=== PATIENT | male | born 1955 | race Caucasian/White ===

== ENCOUNTER 2019-02-27 11:38 | Inpatient (IN) | payer MEDICARE ==
[~2019-02-27] VITALS: Ht 177.8 cm; Wt 109.0 kg
[~2019-02-27 11:38] MED LIST: AMLO10TA PO; ASPI-611 PO; BUDE3CAP8 PO; CYAN50003 PO; FERR324T7 PO; FISH12002 PO; HYDR-4353 PO; KEN0.1O TP; LISI-600 PO; MAGN400T6 PO; MESA1.2T PO; METO50TA7 PO; MULT-1085 PO; POTA20TA19 PO; PRAV10TA39 PO; TICA90TA2 PO; VANC250C12 PO
[2019-02-27] MEDS ORDERED: piperacillin/tazo 3.375gm/50ml 50 ML IV ONE (12:50)
[2019-02-27] MEDS ORDERED: vancomycin/NS 1 GM ADD-VANTAGE 250 ML IV ONE (12:50)
[2019-02-27] MEDS ORDERED: normal saline 1000ML IV soln IVB ONE (12:50)
[2019-02-27] MEDS ORDERED: LIDOcaine 1% w/epiNEPHrine 1:200,000 30ml vial IM ONE (13:05)
[2019-02-27 13:35] LABS: BASOPHILS # (AUTO) 0.1 X10'3 (0-0.2); BASOPHILS % (AUTO) 0.8 % (0-1); EOSINOPHILS # (AUTO) 0.3 X10'3 (0-0.9); EOSINOPHILS % (AUTO) 3.3 % (0-6); HEMATOCRIT 45.2 % (42.0-52.0); HEMOGLOBIN 15.2 g/dl (14.0-17.9); LYMPHOCYTES # (AUTO) 1.2 X10'3 (1.1-4.8); LYMPHOCYTES % (AUTO) 15.3 % (21-51); MEAN CORPUSCULAR HEMOGLOBIN 27.6 PG (27.0-31.0); MEAN CORPUSCULAR HGB CONC 33.6 g/dL (33.0-36.5); MEAN CORPUSCULAR VOLUME 82.2 FL (78-98); MEAN PLATELET VOLUME 7.8 FL (7.4-10.4); MONOCYTES % (AUTO) 12.2 % (2-12); NEUTROPHILS # (AUTO) 5.5 X10'3 (1.8-7.7); NEUTROPHILS % (AUTO) 68.4 % (42-75); PLATELET COUNT 298 X10'3 (140-440); RED BLOOD COUNT 5.51 X10'6 (4.70-6.10); RED CELL DISTRIBUTION WIDTH 18.8 % (11.5-14.5); WHITE BLOOD COUNT 8.1 X10'3 (4.5-11.0)
[2019-02-27 13:45] LABS: PARTIAL THROMBOPLASTIN TIME 27 SECONDS (22-32)
[2019-02-27 13:46] LABS: ALANINE AMINOTRANSFERASE 37 U/L (12-78); ALBUMIN 3.3 G/DL (3.4-5.0); ALBUMIN/GLOBULIN RATIO 0.8 (1.1-1.5); ALKALINE PHOSPHATASE 95 IU/L (46-116); ANION GAP 8 (8-16); ASPARTATE AMINO TRANSFERASE 30 U/L (10-37); BILIRUBIN,TOTAL 0.2 MG/DL (0.1-1.0); BLOOD UREA NITROGEN 8 MG/DL (7-18); BUN/CREATININE RATIO 8.5 (5.4-32.0); CHLORIDE 103 MMOL/L (99-107); CREATININE 0.94 MG/DL (0.60-1.10); GLUCOSE 102 MG/DL (70-104); MAGNESIUM 1.9 MG/DL (1.5-2.4); SODIUM 140 MMOL/L (135-145); TOTAL CARBON DIOXIDE 28.6 MMOL/L (24-32); TOTAL PROTEIN 7.5 G/DL (6.4-8.2); eGFR 81 ML/MIN
[2019-02-27 13:48] LABS: POTASSIUM 3.5 MMOL/L (3.5-5.1)
[2019-02-27] MEDS ORDERED: HYDR-4353 PO (13:55)
[2019-02-27 13:58] LABS: PLATELET ESTIMATE NORMAL
[2019-02-27 13:59] LABS: ANISOCYTOSIS 2+
[2019-02-27] MEDS ORDERED: AMIO200T40 PO (14:00)
[2019-02-27] MEDS ORDERED: CLOP75TA15 PO (14:00)
[2019-02-27] MEDS ORDERED: HYDROmorphone 1 mg/ml syringe IV ONE (14:25)
[2019-02-27] MEDS ORDERED: ondansetron/PF 4mg/2ml inj IV ONE (14:25)
[2019-02-27 14:40] LABS: CLARITY,URINE CLEAR (Clear); COLOR,URINE YELLOW (Yellow); GLUCOSE, URINE NEGATIVE (Neg); KETONES,URINE NEGATIVE (Neg); LEUKOCYTE ESTERASE ,URINE NEGATIVE (Neg); NITRITES, URINE NEGATIVE (Neg); OCCULT BLOOD,URINE NEGATIVE (Neg); PROTEIN,URINE NEGATIVE (Neg); UROBILINOGEN,URINE 0.2 E.U/dL (0.2-1.0)
[2019-02-27 14:41] LABS: UA COLLECTION TYPE CLN CATCH MIDSTREAM
[2019-02-27] MEDS ORDERED: USTE45DI (16:24)
[2019-02-27] MEDS ORDERED: mag hydrox/Alum hydrox/simeth 30ml oral suspension PO PRN (17:40)
[2019-02-27] MEDS ORDERED: acetaminophen 325mg tablet PO PRN ×2 (17:40)
[2019-02-27] MEDS ORDERED: ondansetron/PF 4mg/2ml inj IV PRN (17:40)
[2019-02-27] MEDS ORDERED: magnesium 2GM in 50ml NS 50 ML IV PRN (17:40)
[2019-02-27] MEDS ORDERED: magnesium hydroxide 30ml (MOM) UD suspension PO PRN (17:40)
[2019-02-27] MEDS: K and/or MAG REPLACEMENT MC SCH (17:40)
[2019-02-27] MEDS ORDERED: potassium Cl 40MEQ/NS 500ml 500 ML IV PRN ×2 (17:40)
[2019-02-27] MEDS ORDERED: diphenhydrAMINE 25mg capsule PO PRN (17:40)
[2019-02-27] MEDS ORDERED: morphine 2 MG/ML inj. syringe IV PRN ×2 (17:40)
[2019-02-27] MEDS ORDERED: magnesium 4gm in 100ml NS 100 ML IV PRN (17:40)
[2019-02-27] MEDS ORDERED: HYDROcodone/acetaminophen 5mg/325mg tablet PO PRN (17:40)
[2019-02-27] MEDS ORDERED: potassium Cl 20 mEq SR tablet PO PRN (17:40)
[2019-02-27] MEDS ORDERED: magnesium Cl slow-release 64mg tablet PO PRN (17:40)
[2019-02-27] MEDS: normal saline 1000ml 1,000 ML IV SCH (19:57)
[2019-02-27] MEDS: lisinopril 20mg tablet PO SCH (19:58)
[2019-02-27] MEDS: heparin, porcine 5000 units/ml vial SQ SCH (19:59)
[2019-02-27] MEDS: metoprolol succinate 25mg (24-HOUR) SR. Tablet PO SCH (19:59)
[2019-02-27] MEDS ORDERED: METOPROLOL SUCCINATE PO SCH (20:00)
--- NOTE | 2019-02-27 22:38 | NUR ---
PT REPORTS MINIMAL RELIEF FROM MORPHINE IV 2 MG GIVEN 1 HR AGO. HE REPROTS THE DILAUDID GIVEN EARLIER BY ER WORKED RIGHT AWAY. DR. CACERES UPDATED AND DILAUDID 1 MG Q3 HR PRN FOR SEVERE PAIN NOW ORDERED IN ADDITION TO THE PRN MORPHINE AND PRN NORCO.
[2019-02-27] MEDS: HYDROmorphone 1 mg/ml syringe IV PRN (22:52)
--- NOTE | 2019-02-27 23:58 | NUR ---
PT GIVEN DILAUDID FOR 7 OUT OF 10 PAIN TO HIS LEFT FACE. HE REPROTED RELIEF SHORTLY AFTER ADMINISTRATION. VANCOMYCIN INFUSING, ZOSYN DUE AT [place]. PT AWAITING IPA.
[2019-02-28] MEDS: piperacillin/tazo 3.375gm/50ml 50 ML IV SCH ×3 (00:43→16:22)
[2019-02-28] MEDS: HYDROcodone/acetaminophen 10/325mg tab PO PRN ×2 (00:45→07:38)
[2019-02-28 01:15] VITALS: BP 150/81
--- NOTE | 2019-02-28 01:15 | NUR ---
PATIENT ADMITTED TO ROOM 345A FROM ER FOR FACIAL CELLULITIS. PLACED COMFORTABLE IN BED. VITAL SIGNS TAKEN AND RECORDED.
[2019-02-28] MEDS: HYDROmorphone 1 mg/ml syringe IV PRN ×5 (03:05→22:54)
[2019-02-28] MEDS: normal saline 1000ml 1,000 ML IV SCH ×2 (03:40→10:02)
[2019-02-28 04:53] LABS: BASOPHILS # (AUTO) 0.1 X10'3 (0-0.2); BASOPHILS % (AUTO) 1.1 % (0-1); EOSINOPHILS # (AUTO) 0.3 X10'3 (0-0.9); EOSINOPHILS % (AUTO) 5.2 % (0-6); HEMATOCRIT 41.4 % (42.0-52.0); HEMOGLOBIN 13.8 g/dl (14.0-17.9); LYMPHOCYTES # (AUTO) 1.2 X10'3 (1.1-4.8); MEAN CORPUSCULAR HEMOGLOBIN 27.2 PG (27.0-31.0); MEAN CORPUSCULAR HGB CONC 33.3 g/dL (33.0-36.5); MEAN CORPUSCULAR VOLUME 81.9 FL (78-98); MEAN PLATELET VOLUME 7.7 FL (7.4-10.4); MONOCYTES % (AUTO) 15.1 % (2-12); NEUTROPHILS # (AUTO) 4.1 X10'3 (1.8-7.7); NEUTROPHILS % (AUTO) 60.6 % (42-75); PLATELET COUNT 271 X10'3 (140-440); RED BLOOD COUNT 5.06 X10'6 (4.70-6.10); RED CELL DISTRIBUTION WIDTH 18.9 % (11.5-14.5); WHITE BLOOD COUNT 6.7 X10'3 (4.5-11.0)
[2019-02-28 05:19] LABS: ALANINE AMINOTRANSFERASE 29 U/L (12-78); ALBUMIN 2.8 G/DL (3.4-5.0); ALBUMIN/GLOBULIN RATIO 0.8 (1.1-1.5); ALKALINE PHOSPHATASE 80 IU/L (46-116); ANION GAP 6 (8-16); ASPARTATE AMINO TRANSFERASE 18 U/L (10-37); BILIRUBIN,TOTAL 0.2 MG/DL (0.1-1.0); BLOOD UREA NITROGEN 5 MG/DL (7-18); CALCIUM 8.1 MG/DL (8.5-10.1); CHLORIDE 106 MMOL/L (99-107); CREATININE 0.83 MG/DL (0.60-1.10); GLUCOSE 98 MG/DL (70-104); MAGNESIUM 1.6 MG/DL (1.5-2.4); PHOSPHORUS 3.3 MG/DL (2.3-4.5); POTASSIUM 3.2 MMOL/L (3.5-5.1); SODIUM 140 MMOL/L (135-145); TOTAL CARBON DIOXIDE 28.3 MMOL/L (24-32); TOTAL PROTEIN 6.2 G/DL (6.4-8.2); eGFR > 90 ML/MIN
[2019-02-28 06:25] LABS: GIANT PLATELET FEW; PLATELET ESTIMATE NORMAL
[2019-02-28 06:26] LABS: ANISOCYTOSIS 2+
--- NOTE | 2019-02-28 06:46 | NUR ---
Patient in room [facility]. I have received report from Esteban ROBERSON and had the opportunity to ask questions and assume patient care.
[2019-02-28 07:04] VITALS: BP 142/75
[2019-02-28] MEDS: K and/or MAG REPLACEMENT MC SCH (07:23)
[2019-02-28] MEDS: multivitamins, therapeutics tablet PO SCH (07:36)
[2019-02-28] MEDS: clopidogrel 75mg tablet PO SCH (07:36)
[2019-02-28] MEDS: atorvastatin 10mg tablet PO SCH (07:36)
[2019-02-28] MEDS: potassium Cl 20 mEq SR tablet PO PRN ×3 (07:37→17:30)
[2019-02-28] MEDS: amLODIPine 5mg tablet PO SCH (07:37)
[2019-02-28] MEDS: amiodarone 200mg tablet PO SCH (07:37)
[2019-02-28] MEDS: heparin, porcine 5000 units/ml vial SQ SCH ×2 (07:39→19:51)
[2019-02-28] MEDS: lisinopril 20mg tablet PO SCH ×2 (07:41→19:48)
[2019-02-28] MEDS: metoprolol succinate 25mg (24-HOUR) SR. Tablet PO SCH ×2 (07:41→19:49)
[2019-02-28] MEDS ORDERED: non-formulary drug (Multivitamin (Multi Vitamin Daily) 1 EACH) PO SCH (08:00)
[2019-02-28] MEDS ORDERED: non-formulary drug (Amlodipine Besylate 1 TABLET) PO SCH (08:00)
[2019-02-28] MEDS ORDERED: non-formulary drug (Fish Oil/Borage/Flax/Om3,6,9#1 (Omega 3-6-9 1,200 mg Softgel) 1 CAP) PO SCH (08:00)
[2019-02-28] MEDS ORDERED: pravastatin 10mg tablet PO SCH (08:00)
[2019-02-28] MEDS: OMEGA-3/DHA/EPA/FISH OIL 1 EACH CAPSULE.DR PO SCH (08:56)
--- NOTE | 2019-02-28 10:00 | NUR ---
Dr. Davidson informed that HR has been in the 50s, and metoprolol was held. No new orders at this time.
[2019-02-28 11:15] VITALS: BP 150/73
--- NOTE | 2019-02-28 11:51 | NUR ---
Malnutrition consult: Patient's current wt is stable with documented wts from previous visits. Pt currently on a heart healthy diet with documented PO intake 75% likely meeting nutrient needs. Pt with no documented decrease in muscle strength although with left facial 1+ edema. Pt currently lacks a minimum of two qualifying criteria for malnutrition. Will continue to follow. Addendum: 02/28/19 at [address] Amended: Links added.
--- NOTE | 2019-02-28 18:09 | NUR ---
Problems reprioritized. Patient report given, questions answered & plan of care reviewed with Esteban ROBERSON.
--- NOTE | 2019-02-28 18:30 | NUR ---
Patient in room [facility]. I have received report from EAMNI ROBERSON and had the opportunity to ask questions and assume patient care.
[2019-02-28 20:00] VITALS: BP 128/72
[2019-02-28] MEDS ORDERED: VANCOMYCIN LEVEL IV ONE (20:30)
[2019-03-01] VITALS: BP 144/83
[2019-03-01] MEDS: piperacillin/tazo 3.375gm/50ml 50 ML IV SCH ×2 (01:05→08:14)
[2019-03-01] MEDS: normal saline 1000ml 1,000 ML IV SCH (01:07)
[2019-03-01] MEDS: HYDROmorphone 1 mg/ml syringe IV PRN ×2 (04:19→08:12)
[2019-03-01 04:48] LABS: BASOPHILS # (AUTO) 0.1 X10'3 (0-0.2); BASOPHILS % (AUTO) 1.2 % (0-1); EOSINOPHILS # (AUTO) 0.4 X10'3 (0-0.9); HEMATOCRIT 43.9 % (42.0-52.0); HEMOGLOBIN 14.3 g/dl (14.0-17.9); LYMPHOCYTES # (AUTO) 1.1 X10'3 (1.1-4.8); LYMPHOCYTES % (AUTO) 18.4 % (21-51); MEAN CORPUSCULAR HEMOGLOBIN 26.9 PG (27.0-31.0); MEAN CORPUSCULAR HGB CONC 32.7 g/dL (33.0-36.5); MEAN CORPUSCULAR VOLUME 82.3 FL (78-98); MEAN PLATELET VOLUME 7.9 FL (7.4-10.4); MONOCYTES # (AUTO) 0.9 X10'3 (0-0.9); MONOCYTES % (AUTO) 13.7 % (2-12); NEUTROPHILS # (AUTO) 3.8 X10'3 (1.8-7.7); NEUTROPHILS % (AUTO) 60.7 % (42-75); PLATELET COUNT 315 X10'3 (140-440); RED BLOOD COUNT 5.33 X10'6 (4.70-6.10); RED CELL DISTRIBUTION WIDTH 19.3 % (11.5-14.5); WHITE BLOOD COUNT 6.2 X10'3 (4.5-11.0)
[2019-03-01 05:16] LABS: ALANINE AMINOTRANSFERASE 33 U/L (12-78); ALBUMIN 3.2 G/DL (3.4-5.0); ALBUMIN/GLOBULIN RATIO 0.8 (1.1-1.5); ALKALINE PHOSPHATASE 93 IU/L (46-116); ANION GAP 8 (8-16); ASPARTATE AMINO TRANSFERASE 23 U/L (10-37); BILIRUBIN,TOTAL 0.3 MG/DL (0.1-1.0); BLOOD UREA NITROGEN 5 MG/DL (7-18); BUN/CREATININE RATIO 5.8 (5.4-32.0); CALCIUM 9.2 MG/DL (8.5-10.1); CHLORIDE 106 MMOL/L (99-107); CREATININE 0.86 MG/DL (0.60-1.10); GLUCOSE 97 MG/DL (70-104); MAGNESIUM 1.8 MG/DL (1.5-2.4); PHOSPHORUS 3.3 MG/DL (2.3-4.5); SODIUM 143 MMOL/L (135-145); TOTAL CARBON DIOXIDE 29.3 MMOL/L (24-32); TOTAL PROTEIN 7.2 G/DL (6.4-8.2); eGFR 90 ML/MIN
--- NOTE | 2019-03-01 06:00 | NUR ---
Patient in room [facility]. I have received report from PAT STEWART RN and had the opportunity to ask questions and assume patient care.
[2019-03-01 06:27] LABS: ANISOCYTOSIS 2+; PLATELET ESTIMATE NORMAL
--- NOTE | 2019-03-01 06:30 | NUR ---
Problems reprioritized. Patient report given, questions answered & plan of care reviewed with RENÉ ROBERSON.
[2019-03-01 07:29] VITALS: BP 123/84
[2019-03-01] MEDS: K and/or MAG REPLACEMENT MC SCH (08:00)
[2019-03-01] MEDS: clopidogrel 75mg tablet PO SCH (08:08)
[2019-03-01] MEDS: multivitamins, therapeutics tablet PO SCH (08:09)
[2019-03-01] MEDS: amiodarone 200mg tablet PO SCH (08:09)
[2019-03-01] MEDS: atorvastatin 10mg tablet PO SCH (08:09)
[2019-03-01] MEDS: OMEGA-3/DHA/EPA/FISH OIL 1 EACH CAPSULE.DR PO SCH (08:10)
[2019-03-01] MEDS: lisinopril 20mg tablet PO SCH (08:10)
[2019-03-01] MEDS: amLODIPine 5mg tablet PO SCH (08:11)
[2019-03-01] MEDS: metoprolol succinate 25mg (24-HOUR) SR. Tablet PO SCH (08:11)
[2019-03-01] MEDS: heparin, porcine 5000 units/ml vial SQ SCH (08:14)
--- NOTE | 2019-03-01 11:08 | NUR ---
Student documentation: I have reviewed all interventions, assessments performed and documented by LETICIA [facility]..
[2019-03-01 11:25] VITALS: BP 127/72
[2019-03-01] MEDS ORDERED: LINE600T36 PO (11:44)
--- NOTE | 2019-03-01 13:08 | NUR ---
PT IS DISCHARGED ON . WAITING FOR A RIDE
== END 2019-03-01 14:00 | disposition home or self-care (01) | DRG 863 ==
LOC: ER 11:38 → SUR 3N 02-28 01:21 → CMPBEDREQ 02-28 01:31 → SUR 3N 02-28 14:45
PROVIDERS: ADMIT Family Medicine; ATTEND Family Medicine
PROC: 0H91XZZ Drainage of Face Skin, External Approach (ICD-10-PCS; principal; 2019-02-27)
DX: T81.41XA Infection following a procedure, superficial incisional surgical site, initial encounter (principal); L03.211 Cellulitis of face; K50.90 Crohn's disease, unspecified, without complications; I48.91 Unspecified atrial fibrillation; G47.33 Obstructive sleep apnea (adult) (pediatric); B95.61 Methicillin susceptible Staphylococcus aureus infection as the cause of diseases classified elsewhere; E78.5 Hyperlipidemia, unspecified; I10 Essential (primary) hypertension; E87.6 Hypokalemia; I25.10 Atherosclerotic heart disease of native coronary artery without angina pectoris; Y83.8 Other surgical procedures as the cause of abnormal reaction of the patient, or of later complication, without mention of misadventure at the time of the procedure; Z98.61 Coronary angioplasty status; Z79.02 Long term (current) use of antithrombotics/antiplatelets; Z88.5 Allergy status to narcotic agent; Z88.8 Allergy status to other drugs, medicaments and biological substances; Z79.899 Other long term (current) drug therapy; Z87.891 Personal history of nicotine dependence; Z81.8 Family history of other mental and behavioral disorders; Z82.49 Family history of ischemic heart disease and other diseases of the circulatory system; Y92.89 Other specified places as the place of occurrence of the external cause
CPT/HCPCS: 10060; 36415; 71045; 80053; 80202; 81003; 83605; 83735; 84100; 84145; 84439; 84443; 85025; 85610; 85730; 87040; 87070; 87077; 87186; 93005; 94760; 96365; 96366; 96368; 96375; 96376; 99285; G0378; J1170; J1644; J2270; J2405; J2543; J3370; J3490; J7030

== ENCOUNTER 2020-09-10 10:11 | Outpatient (CLI) | payer MEDICARE ==
[~2020-09-10 10:11] MED LIST changes: +AMIO200T61 PO; -ASPI-611 PO; -BUDE3CAP8 PO; +CLOP75TA15 PO; -CYAN50003 PO; -FERR324T7 PO; -KEN0.1O TP; -MAGN400T6 PO; -MESA1.2T PO; -POTA20TA19 PO; -TICA90TA2 PO; +USTE45DI; -VANC250C12 PO
[2020-09-10 11:21] LABS: TOTAL HEMOGLOBIN 13.5 G/dl (14.0-18.0)
== END 2020-09-10 23:59 | disposition home or self-care (01) ==
LOC: RT 10:11
PROVIDERS: ATTEND Internal Medicine Cardiovascular Disease
DX: R06.02 Shortness of breath (principal); Z79.899 Other long term (current) drug therapy
CPT/HCPCS: 71046; 85018; 94010; 94727; 94729

== ENCOUNTER 2020-09-25 09:15 | Outpatient (CLI) | payer MEDICARE ==
[2020-09-25] VITALS (21 sets, daily range): BP systolic 110–136; BP diastolic 65–74
== END 2020-09-25 23:59 | disposition home or self-care (01) ==
LOC: CARD DIAG 09:15
PROVIDERS: ATTEND Internal Medicine Cardiovascular Disease
DX: R42 Dizziness and giddiness (principal)
CPT/HCPCS: 93660